=== PATIENT | female | born 1945 | race Caucasian/White ===

== ENCOUNTER 2018-11-05 21:22 | Inpatient (IN) | payer MEDICARE, OTHER ==
[~2018-11-05] VITALS: Ht 162.6 cm; Wt 85.9 kg
--- NOTE | 2018-11-05 21:37 | ED Respiratory ---
General Chief Complaint: Respiratory Problems Stated Complaint: SOB Source: patient, family (daughter) Exam Limitations: other (very hard of hearing) History of Present Illness Date Seen by Provider: Nov 05, 2018 Time Seen by Provider: 21:25 Initial Comments The patient is a pleasant 72-year-old female who presents for evaluation of s hortness of breath. She is a history of asthma and CAD status post CABG. She does not have a home nebulizer machine so wanted to sign members also use her machine. She is saturating 88% on room air upon arrival. She does wear oxygen at home at that night. She denies chest pain, nausea, diaphoresis, abdominal or back pain, palpitations, dizziness or syncope. She does feel warm arrival is temperature 100.4. She is anticoagulated with Xarelto. Timing/Duration: yesterday Modifying Factors: Improves With Albuterol Nebulizer (helped), Improves With Rest (helped) Allergies and Home Medications Allergies Coded Allergies: No Known Drug Allergies (Unverified , 11/05/18) Patient Home Medication List Home Medication List Reviewed: Yes Review of Systems Review of Systems Constitutional: fever EENTM: no symptoms reported Respiratory: cough, short of breath, wheezing Cardiovascular: no symptoms reported Gastrointestinal: no symptoms reported Genitourinary: no symptoms reported Musculoskeletal: no symptoms reported Skin: no symptoms reported Psychiatric/Neurological: No Symptoms Reported Hematologic/Lymphatic: No Symptoms Reported Immunological/Allergic: no symptoms reported All Other Systems Reviewed Negative Unless Noted: Yes Past Zryukvf-Hpbwwl-Wwcvps Hx Past Med/Social Hx: Reviewed Nursing Past Med/Soc Hx Patient Social History Recent Foreign Travel: No Contact w/Someone Who Travel: No Physical Exam Vital Signs - First Documented 11/05/18 11/05/18 21:25 21:37 Temp 100.4 Pulse 76 Resp 24 B/P (MAP) 170/83 (112) Pulse Ox 96 O2 Delivery Nasal Cannula O2 Flow Rate 3.00 Capillary Refill : Height: '" Weight: lbs. oz. 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, no motor/sensory deficits, alert, normal mood/affect, oriented x 3 Skin: normal color, warm/dry Lymphatic: no adenopathy Focused Exam Lactate Level 11/05/18 21:35: Lactic Acid Level 2.03*H Lactic Acid Level Laboratory Tests Test 11/05/18 21:35 Lactic Acid Level 2.03 MMOL/L (0.50-2.00) *H Progress/Results/Core Measures Suspected Sepsis SIRS Temperature: Pulse: Respiratory Rate: Laboratory Tests 11/05/18 21:29: White Blood Count 7.1 Blood Pressure / Mean: 11/05/18 21:35: Lactic Acid Level 2.03*H Laboratory Tests 11/05/18 21:29: Creatinine 0.93, Platelet Count 122L, Total Bilirubin 0.9 Results/Orders Lab Results Laboratory Tests Test 11/05/18 21:29 11/05/18 21:35 11/05/18 21:45 Range/Units White Blood Count 7.1 4.3-11.0 10^3/uL Red Blood Count 3.58 L 4.35-5.85 10^6/uL Hemoglobin 10.6 L 11.5-16.0 G/DL Hematocrit 34 L 35-52 % Mean Corpuscular Volume 94 80-99 FL Mean Corpuscular Hemoglobin 30 25-34 PG Mean Corpuscular Hemoglobin Concent 32 32-36 G/DL Red Cell Distribution Width 15.1 H 10.0-14.5 % Platelet Count 122 L 130-400 10^3/uL Mean Platelet Volume 11.9 H 7.4-10.4 FL Neutrophils (%) (Auto) 76 H 42-75 % Lymphocytes (%) (Auto) 16 12-44 % Monocytes (%) (Auto) 6 0-12 % Eosinophils (%) (Auto) 1 0-10 % Basophils (%) (Auto) 0 0-10 % Neutrophils # (Auto) 5.4 1.8-7.8 X 10^3 Lymphocytes # (Auto) 1.1 1.0-4.0 X 10^3 Monocytes # (Auto) 0.4 0.0-1.0 X 10^3 Eosinophils # (Auto) 0.1 0.0-0.3 10^3/uL Basophils # (Auto) 0.0 0.0-0.1 10^3/uL Sodium Level 139 135-145 MMOL/L Potassium Level 3.6 3.6-5.0 MMOL/L Chloride Level 96 L 98-107 MMOL/L Carbon Dioxide Level 27 21-32 MMOL/L Anion Gap 16 H 5-14 MMOL/L Blood Urea Nitrogen 14 7-18 MG/DL Creatinine 0.93 0.60-1.30 MG/DL Estimat Glomerular Filtration Rate 59 BUN/Creatinine Ratio 15 Glucose Level 268 H 70-105 MG/DL Calcium Level 9.5 8.5-10.1 MG/DL Corrected Calcium 9.4 8.5-10.1 MG/DL Total Bilirubin 0.9 0.1-1.0 MG/DL Aspartate Amino Transf (AST/SGOT) 44 H 5-34 U/L Alanine Aminotransferase (ALT/SGPT) 21 0-55 U/L Alkaline Phosphatase 141 H 40-136 U/L Total Protein 7.5 6.4-8.2 GM/DL Albumin 4.1 3.2-4.5 GM/DL Lactic Acid Level 2.03 *H 0.50-2.00 MMOL/L Troponin I < 0.30 <0.30 NG/ML Pro-B-Type Natriuretic Peptide 5256.0 H <75.0 PG/ML Urine Color YELLOW Urine Clarity CLEAR Urine pH 7.0 5-9 Urine Specific [place] 1.010 L 1.016-1.022 Urine Protein 1+ H NEGATIVE Urine Glucose (UA) 1+ H NEGATIVE Urine Ketones NEGATIVE NEGATIVE Urine Nitrite NEGATIVE NEGATIVE Urine Bilirubin NEGATIVE NEGATIVE Urine Urobilinogen 2.0 NORMAL MG/DL Urine Leukocyte Esterase NEGATIVE NEGATIVE Urine RBC (Auto) NEGATIVE NEGATIVE Urine RBC 0-2 /HPF Urine WBC 2-5 /HPF Urine Squamous Epithelial Cells 2-5 /HPF Urine Crystals NONE /LPF Urine Bacteria FEW H /HPF Urine Casts NONE /LPF Urine Mucus NONE /LPF Urine Culture Indicated NO My Orders Orders - DANY OLIVEIRA DO Cbc With Automated Diff (11/05/18 21:33) Comprehensive Metabolic Panel (11/05/18 21:33) Blood Culture (11/05/18 21:33) Urinalysis (11/05/18 21:33) Urine Culture (11/05/18 21:33) Chest 1 View Ap/Pa Only (11/05/18 21:33) Ed Iv/Invasive Line Start (11/05/18 21:33) Ekg Tracing (11/05/18 21:33) O2 (11/05/18 21:33) Remove Rings In Anticipation O (11/05/18 21:33) Lactic Acid Analyzer (11/05/18 21:33) Release Engineer (11/05/18 21:33) Continuous Pulse Ox (11/05/18 21:33) Albuterol/Ipra Inhalation Soln (Duoneb I (11/05/18 22:00) Svn Small Volume Nebulizer (11/05/18 21:49) Acetaminophen Tablet (Tylenol Tablet) (11/05/18 22:00) Methylprednisolone Sod Succ (Solu-Medrol (11/05/18 22:00) Troponin I (11/05/18 22:21) Probnp Fs (11/05/18 22:21) Furosemide Injection (Lasix Injection) (11/05/18 22:30) Ceftriaxone For Iv Use (Rocephin For I (11/05/18 23:00) Azithromycin Injection (Zithromax Inject (11/05/18 23:00) Medications Given in ED Current Medications Medications Dose Ordered Sig/Lucretia Route Start Time Stop Time Status Last Admin Dose Admin Acetaminophen 1,000 mg ONCE ONCE PO 11/05/18 22:00 11/05/18 22:01 DC 11/05/18 22:05 1,000 MG Albuterol/ Ipratropium 3 ml ONCE ONCE INH 11/05/18 22:00 11/05/18 22:01 DC 11/05/18 22:05 3 ML Furosemide 40 mg ONCE ONCE IVP 11/05/18 22:30 11/05/18 22:31 DC 11/05/18 22:48 40 MG Methylprednisolone Sodium Succinate 125 mg ONCE ONCE IVP 11/05/18 22:00 11/05/18 22:01 DC 11/05/18 22:05 125 MG Vital Signs/I&O 11/05/18 11/05/18 21:25 21:37 Temp 100.4 Pulse 76 Resp 24 B/P (MAP) 170/83 (112) Pulse Ox 96 96 O2 Delivery Nasal Cannula Nasal Cannula O2 Flow Rate 3.00 Capillary Refill : Progress Note : Progress Note @2300 - Patient and family updated on lab and imaging results. They agree with the plan to be admitted. Hospitalist jose and Dr. Ocampo accepts the admission and [facility]. ECG Comment EKG@2130 - normal sinus rhythm, rate of 63, normal axis, no acute ischemic findings noted, no STEMI, reviewed and interpreted by myself Diagnostic Imaging Diagonstic Imaging: Xray Comments CXR (prelim): Pulmonary edema is present, questionable left lower lobe infiltrate present, enlarged heart, pacemaker present, sternotomy wires noted Departure Communication (Admissions) Time/Spoke to Admitting Phy: 23:00 @0 - Dr. Ocampo excepts the telemetry admission and requests a pulmonary cons ult Dr. Sawyer and a cardiology consult with Dr. Layne. Impression Primary Impression: Acute exacerbation of congestive heart failure Additional Impression: Community acquired pneumonia Disposition: ADMITTED INPATIENT Condition: Stable Admissions Decision to Admit Reason: Admit from ER (General) Decision to Admit/Date: Nov 05, 2018 Time/Decision to Admit Time: 23:00 Departure-Patient Inst. Referrals: SEBASTIEN BROWN MD (PCP) Primary Care Physician DANY OLIVEIRA DO Nov 05, 2018 21:37
[2018-11-05 21:44] LABS: BASOPHILS % (AUTO) 0 % (0-10); EOSINOPHILS % (AUTO) 1 % (0-10); HEMATOCRIT 34 % (35-52); HEMOGLOBIN 10.6 G/DL (11.5-16.0); LYMPHOCYTES # (AUTO) 1.1 X 10^3 (1.0-4.0); LYMPHOCYTES % (AUTO) 16 % (12-44); MEAN CORPUSCULAR HEMOGLOBIN 30 PG (25-34); MEAN CORPUSCULAR HGB CONC 32 G/DL (32-36); MEAN CORPUSCULAR VOLUME 94 FL (80-99); MEAN PLATELET VOLUME 11.9 FL (7.4-10.4); MONOCYTES % (AUTO) 6 % (0-12); NEUTROPHILS # (AUTO) 5.4 X 10^3 (1.8-7.8); NEUTROPHILS % (AUTO) 76 % (42-75); PLATELET COUNT 122 10^3/uL (130-400); RED CELL DISTRIBUTION WIDTH 15.1 % (10.0-14.5); WHITE BLOOD COUNT 7.1 10^3/uL (4.3-11.0)
[2018-11-05 21:45] LABS: EOSINOPHILS # (AUTO) 0.1 10^3/uL (0.0-0.3); MONOCYTES # (AUTO) 0.4 X 10^3 (0.0-1.0)
[2018-11-05 21:59] LABS: BILIRUBIN,URINE NEGATIVE (NEGATIVE); CLARITY,URINE CLEAR; COLOR,URINE YELLOW; GLUCOSE, URINE (UA) 1+ (NEGATIVE); KETONES,URINE NEGATIVE (NEGATIVE); LEUKOCYTE ESTERASE ,URINE NEGATIVE (NEGATIVE); NITRITE,URINE NEGATIVE (NEGATIVE); PROTEIN,URINE 1+ (NEGATIVE); RBC,URINE 0-2 /HPF
[2018-11-05 22:00] LABS: BACTERIA,URINE FEW /HPF
[2018-11-05] MEDS ORDERED: methylPREDNISolone 125 MG (Solu-MEDROL) VIAL IVP ONE (22:00)
[2018-11-05] MEDS ORDERED: RT-ALBUTEROL/IPRATROPIUM 3 ML (DUONEB) VIAL INH ONE (22:00)
[2018-11-05] MEDS ORDERED: ACETAMINOPHEN 500 MG TAB (TYLENOL) PO ONE (22:00)
[2018-11-05 22:19] LABS: BILIRUBIN,TOTAL 0.9 MG/DL (0.1-1.0); CALCIUM 9.5 MG/DL (8.5-10.1); CREATININE SERUM 0.93 MG/DL (0.60-1.30); POTASSIUM 3.6 MMOL/L (3.6-5.0)
[2018-11-05 22:20] LABS: ALBUMIN 4.1 GM/DL (3.2-4.5); TOTAL PROTEIN 7.5 GM/DL (6.4-8.2)
[2018-11-05] MEDS ORDERED: FUROSEMIDE 40 MG/4 ML INJ (LASIX) IVP ONE (22:30)
--- NOTE | 2018-11-05 22:43 | Diagnostic Imaging Report ---
Examination: Single frontal view of the chest Indication: Shortness of breath. Comparison: None available. Findings: Left transvenous pacemaker is in place, with leads overlying the right atrium and right ventricle. There is moderate cardiomegaly. There is marked central vascular congestion, with diffuse mild interstitial prominence. There is no pneumothorax or large pleural effusion. No acute osseous abnormalities identified. There is decreased acromiohumeral distance involving both shoulders, likely reflecting chronic rotator cuff pathology. The spinal stimulator is demonstrated in the region of the lower lumbar spine. Median sternotomy wires appear intact. Impression: Interstitial pulmonary edema. There is moderate cardiomegaly. No large pleural effusion is demonstrated. Dictated by: Dictated on workstation # [id number]
[2018-11-05] MEDS ORDERED: cefTRIAXone 1,000 MG IV (ROCEPHIN) VIAL ONE (22:53)
[2018-11-05] MEDS ORDERED: AZITHROMYCIN 500 MG (ZITHROMAX) VIAL ONE (22:54)
--- NOTE | 2018-11-05 22:54 | NUR ---
PT. STATED SHE IS BREATHING EASIER.
[2018-11-05] MEDS ORDERED: NS (IVPB) 250 ML ONE (22:55)
[2018-11-05] MEDS ORDERED: WATER (STERILE) FOR INJECTION 10 ML ONE (22:56)
[2018-11-05] MEDS ORDERED: AZITHROMYCIN INJECTION 500 MG in NS (IVPB) 250 ML IV ONE (23:00)
[2018-11-05] MEDS ORDERED: cefTRIAXone FOR IV USE 1,000 MG in WATER (STERILE) FOR INJECTION 10 ML IV ONE (23:00)
[2018-11-06] VITALS (14 sets, daily range): BP systolic 108–187; BP diastolic 60–88
[2018-11-06] MEDS ORDERED: ACETAMINOPHEN 500 MG TAB (TYLENOL) PO PRN (02:00)
[2018-11-06] MEDS ORDERED: RT-ALBUTEROL/IPRATROPIUM 3 ML (DUONEB) VIAL IH PRN (02:00)
[2018-11-06] MEDS ORDERED: ONDANSETRON 4 MG/2 ML (SDV) Z0FRAN IV PRN (02:00)
[2018-11-06 03:48] LABS: BASOPHILS % (AUTO) 0 % (0-10); EOSINOPHILS % (AUTO) 0 % (0-10); HEMATOCRIT 33 % (35-52); HEMOGLOBIN 10.6 G/DL (11.5-16.0); LYMPHOCYTES # (AUTO) 0.8 X 10^3 (1.0-4.0); LYMPHOCYTES % (AUTO) 12 % (12-44); MEAN CORPUSCULAR HEMOGLOBIN 30 PG (25-34); MEAN CORPUSCULAR HGB CONC 32 G/DL (32-36); MEAN CORPUSCULAR VOLUME 93 FL (80-99); MEAN PLATELET VOLUME 11.7 FL (7.4-10.4); MONOCYTES # (AUTO) 0.1 X 10^3 (0.0-1.0); MONOCYTES % (AUTO) 2 % (0-12); NEUTROPHILS # (AUTO) 5.6 X 10^3 (1.8-7.8); NEUTROPHILS % (AUTO) 87 % (42-75); PLATELET COUNT 120 10^3/uL (130-400); RED CELL DISTRIBUTION WIDTH 15.3 % (10.0-14.5); WHITE BLOOD COUNT 6.4 10^3/uL (4.3-11.0)
[2018-11-06 04:14] LABS: CALCIUM 9.6 MG/DL (8.5-10.1); CREATININE SERUM 1.06 MG/DL (0.60-1.30); POTASSIUM 3.3 MMOL/L (3.6-5.0); TOTAL PROTEIN 7.6 GM/DL (6.4-8.2)
[2018-11-06] MEDS ORDERED: methylPREDNISolone 125 MG (Solu-MEDROL) VIAL IVP SCH ×2 (06:00→12:00)
--- NOTE | 2018-11-06 07:05 | Pulmonary Consultation ---
History of Present Illness History of Present Illness Date of Consultation 11/06/18 07:02 Time Seen by Provider: 07:52 Date of Admission History of Present Illness 72yo with hx of asthma, CAD presented to ED secondary to worsening SOB. Pt was found to have Sp02 of 88% on RA in the ED. SHe has home nocturnal oxygen however does not have portable oxygen at home. denies chest pain, nausea, diaphoresis, abdominal or back pain, palpitations, dizziness or syncope. Temp was 100.4 in the ED. I am consulted for pulmonary/ICU management. Allergies and Home Medications Allergies Coded Allergies: No Known Drug Allergies (Unverified , 11/05/18) Past Hwfvbgk-Hclxks-Lxzcxz Hx Past Med/Social Hx: Reviewed Nursing Past Med/Soc Hx Patient Social History Recent Foreign Travel: No Contact w/Someone Who Travel: No Recent Infectious Disease Expo: No Physical Abuse: No Sexual Abuse: No Mistreated: No Fear: No Immunizations Up To Date Date of Pneumonia Vaccine: Apr 14, 2014 Review of Systems Time Seen by Provider: 08:10 Constitutional: Weakness, Malaise; No: Fever, Chills, Sweats, Other Eyes: No: Pain, Vision change, Conjunctivae inflammation, Eyelid inflammation, Other, Redness ENT: Nose congestion; No: Ear pain, Ear discharge, Nose pain, Nose discharge, Mouth pain, Mouth swelling, Throat pain, Throat swelling, Other Respiratory: Cough, Shortness of breath, SOB with excertion, Wheezing; No: Hemoptysis, Pleuritic Pain Cardiovascular: Palpitations, Paroxysmal Noc. Dyspnea, Edema; No: Chest Pain Gastrointestinal: No: Nausea, Vomiting, Abdominal Pain, Diarrhea, Constipation, Melena, Hematochezia, Other Sepsis Event Evaluation Height, Weight, BMI Height: 5'4.00" Weight: 199lbs. 0.0oz. 90.146043rk; 34.2 BMI Method:Stated Exam Exam Vital Signs Date Time Temp Pulse Resp B/P (MAP) Pulse Ox O2 Delivery O2 Flow Rate FiO2 11/06/18 04:00 64 177/84 (115) 98 Nasal Cannula 2.00 11/06/18 04:00 Nasal Cannula 2.00 11/06/18 03:45 60 145/60 (88) 98 Nasal Cannula 2.00 11/06/18 03:30 60 18 167/75 (105) 97 Nasal Cannula 2.00 11/06/18 03:15 59 13 170/72 (104) 98 Nasal Cannula 2.00 11/06/18 03:00 63 25 108/74 (85) 98 Nasal Cannula 2.00 11/06/18 02:45 65 19 175/88 (117) 98 Nasal Cannula 2.00 11/06/18 02:30 64 21 171/84 (113) 98 Nasal Cannula 2.00 11/06/18 02:28 98 Nasal Cannula 11/06/18 02:15 63 23 159/70 (99) 99 Nasal Cannula 2.00 11/06/18 02:00 97 Nasal Cannula 2.00 11/06/18 02:00 64 13 166/74 (104) 99 Nasal Cannula 2.00 11/06/18 01:53 97.6 60 16 187/86 100 Nasal Cannula 2.00 2.00 11/06/18 01:51 60 12 180/82 (114) 99 Nasal Cannula 2.00 11/06/18 01:44 97.6 60 16 187/86 (119) 100 Nasal Cannula 2.00 11/06/18 01:42 60 11/05/18 23:55 97.6 59 16 86/53 (64) 97 Nasal Cannula 3.00 11/05/18 21:37 96 Nasal Cannula 3.00 11/05/18 21:25 100.4 76 24 170/83 (112) 96 Nasal Cannula I & O 11/06/18 07:00 Intake Total 360 ml Output Total 1400 ml Balance -1040 ml Height & Weight Height: 5'4.00" Weight: 199lbs. 0.0oz. 90.848002ws; 34.2 BMI Method:Stated General Appearance: Anxious, Chronically ill, Mild Distress HEENT: PERRL/EOMI, Pharynx Normal Neck: Full Range of Motion, Non Tender, Supple Respiratory: Chest Non Tender, No Accessory Muscle Use, No Respiratory Distress, Decreased Breath Sounds Cardiovascular: Regular Rate, Rhythm, No Edema Capillary Refill: Less Than 3 Seconds Gastrointestinal: normal bowel sounds, non tender, soft, no organomegaly Extremity: Normal Capillary Refill, Normal Inspection, No Pedal Edema Neurologic/Psychiatric: Alert, Oriented x3 Skin: Normal Color, Warm/Dry Lymphatic: No Adenopathy Results Lab Laboratory Tests 11/05/18 21:29 11/06/18 03:05 Assessment/Plan Assessment/Plan Acute respiratory distress secondary to acute Pulmonary edema -Check echocardiogram -Oxygen -troponin is negative -Cardiology is consulted -Continue Lasix -BNP 5256 AsthmaAE -Continue Solumedrol -Duonebs Thrombocytopenia -Monitor Hypokalemia -Replace Anemia -Monitor -Check occult stool JUAN FRANCISCO BERGMAN DO Nov 06, 2018 07:05
--- NOTE | 2018-11-06 07:35 | NUR ---
NOTIFIED DR BERGMAN AND DR VARGAS OF CONSULT
[2018-11-06] MEDS ORDERED: KCL 20 MEQ TAB (K-DUR) PO NR (08:00)
[2018-11-06 08:22] LABS: MAGNESIUM 1.9 MG/DL (1.8-2.4); PHOSPHORUS 2.6 MG/DL (2.3-4.7)
[2018-11-06] MEDS: RT-ADVAIR HFA 115/21 MCG PER PUFF IH SCH ×2 (08:52→20:06)
[2018-11-06] MEDS: RT-ALBUTEROL/IPRATROPIUM 3 ML (DUONEB) VIAL INH SCH ×3 (08:52→20:06)
[2018-11-06] MEDS ORDERED: FURO40TA4 PO (10:15)
[2018-11-06] MEDS ORDERED: ALLO100T PO (10:15)
[2018-11-06] MEDS ORDERED: ISOS30TA3 PO (10:15)
[2018-11-06] MEDS ORDERED: ASPI-983 PO (10:15)
[2018-11-06] MEDS ORDERED: SERT100T8 PO (10:15)
[2018-11-06] MEDS ORDERED: PANT40TA3 PO (10:15)
[2018-11-06] MEDS ORDERED: CLOP75TA28 PO (10:15)
--- NOTE | 2018-11-06 10:17 | NUR ---
WENT OVER THE EXT MED HX WITH FAMILY IN THE ROOM SINCE PATIENT IS HARD OF HEARING. SHE VERIFIED HOW THE PATIENT TAKES EACH MEDICATION. SHE STATES THE PATIENT DOES NOT TAKE ANYTHING OTC.
--- NOTE | 2018-11-06 10:33 | History & Physical-Hospitalist ---
History of Present Illness HPI/Chief Complaint Chief complaint: Pulmonary edema History of present illness: This is a 72-year-old white female patient of Dr. Mckeon and cardiology at [facility] who presented to the [facility] ER with shortness of breath found to have volume overload with elevated BNP consistent with pulmonary edema on chest x-ray. She does use nighttime oxygen at 2 L. At this current time it is difficult to communicate with her since she is so hard of hearing and her daughters at the bedside who lives with her and takes care of her who provides most of the information. We will be transferring to fourth floor since shortness of breath is much improved and she has responded to diuresis and will be closely monitored down in fourth floor will initiate physical therapy Dr. Rios therapy and maintain oxygen and nebulizer treatments and IV steroids and IV diuresis. Source: patient, family, RN/MD Exam Limitations: no limitations Date Seen 11/06/18 Time Seen by a Provider: 09:30 Attending Physician Roseanne Ocampo DO PCP Yo Mckeon MD Referring Physician Date of Admission Nov 05, 2018 at 23:10 Home Medications & Allergies Home Medications Reviewed patient Home Medication Reconciliation performed by pharmacy medication reconciliations records management technician and/or nursing. Patients Allergies have been reviewed. Allergies Allergies Coded Allergies No Known Drug Allergies (Unverified11/05/18) Past Dagmmyi-Ivepca-Hykypt Hx Past Med/Social Hx: Reviewed Nursing Past Med/Soc Hx, Reviewed and Corrections made Patient Social History Marrital Status: single Employed/Student: retired Smoking Status: Never a Smoker Recent Foreign Travel: No Contact w/other who traveled: No Recent Infectious Disease Expo: No Immunizations Up To Date Date of Pneumonia Vaccine: Apr 14, 2014 Past Medical History Surgeries: Coronary Stent Respiratory: Asthma Cardiac: Coronary Artery Disease, High Cholesterol, Hypertension, Valvular Heart Disease Musculoskeletal: Gout Hearing Impairment: Hard of Hearing Review of Systems Constitutional: see HPI EENTM: no symptoms reported Respiratory: dyspnea on exertion, short of breath Cardiovascular: no symptoms reported Gastrointestinal: no symptoms reported Genitourinary: no symptoms reported Musculoskeletal: no symptoms reported Skin: no symptoms reported Psychiatric/Neurological: No Symptoms Reported All Other Systems Reviewed Negative Unless Noted: Yes Physical Exam Physical Exam Vital Signs Vital Signs - First Documented 11/05/18 11/05/18 21:25 21:37 Temp 100.4 Pulse 76 Resp 24 B/P (MAP) 170/83 (112) Pulse Ox 96 O2 Delivery Nasal Cannula O2 Flow Rate 3.00 Capillary Refill : Less Than 3 Seconds Height, Weight, BMI Height: 5'4.00" Weight: 199lbs. 0.0oz. 90.636769xh; 34.2 BMI Method:Stated General Appearance: No Apparent Distress, WD/WN, Chronically ill Eyes: Right Eye Normal Inspection, Right Eye PERRL HEENT: PERRL/EOMI, Normal ENT Inspection, Pharynx Normal, Moist Mucous Membranes Neck: Full Range of Motion, Normal Inspection, Non Tender Respiratory: Chest Non Tender, No Accessory Muscle Use, No Respiratory Distress, Crackles, Decreased Breath Sounds Cardiovascular: Regular Rate, Rhythm, No Edema, No Gallop, No JVD, Normal Peripheral Pulses, Systolic Murmur Gastrointestinal: Normal Bowel Sounds, No Organomegaly, No Pulsatile Mass, Non Tender, Soft Back: Normal Inspection, No CVA Tenderness, No Vertebral Tenderness Extremity: Normal Capillary Refill, Normal Inspection, Normal Range of Motion, Non Tender, No Calf Tenderness, No Pedal Edema Neurologic/Psychiatric: Alert, Oriented x3, No Motor/Sensory Deficits, Normal Mood/Affect Skin: Normal Color, Warm/Dry Lymphatic: No Adenopathy Results Results/Procedures Labs Laboratory Tests 11/05/18 21:29 11/06/18 03:05 Patient resulted labs reviewed. Assessment/Plan Admission Diagnosis Assessment: Acute respiratory distress Pulmonary edema AE Asthma Thrombocytopenia Hypokalemia Anemia Night time hypoxia Plan: Appreciate cardiology and pulmonology consultations Transfer to fourth floor PT/OT O2 to maintain at 2 L Admission Status: Inpatient Order (span 2 midnights) Reason for Inpatient Admission: CHF with hypoxia will require 3 days Diagnosis/Problems Diagnosis/Problems (1) Acute exacerbation of congestive heart failure Status: Acute Qualifiers: Heart failure type: unspecified Qualified Codes: I50.9 - Heart failure, unspecified (2) CAD (coronary artery disease) Status: Chronic Qualifiers: Coronary Disease-Associated Artery/Lesion type: [place] artery [place] vs. transplanted heart: [place] heart Associated angina: with stable angina Qualified Codes: I25.118 - Atherosclerotic heart disease of [place] coronary artery with other forms of angina pectoris (3) Stenosis of coronary stent Status: Chronic Qualifiers: Encounter type: sequela Qualified Codes: T82.855S - Stenosis of coronary artery stent, sequela (4) Presbycusis of both ears Status: Chronic (5) Gout Status: Chronic Qualifiers: Gout site: unspecified site Gout etiology: unspecified cause Chronicity: unspecified Qualified Codes: M10.9 - Gout, unspecified Clinical Quality Measures DVT/VTE Risk/Contraindication: Risk Factor Score Per Nursin RFS Level Per Nursing on Admit: 3=High ROSEANNE OCAMPO DO Nov 06, 2018 10:33
--- NOTE | 2018-11-06 10:49 | Consultation-Cardiology ---
HPI-Cardiology Cardiology Consultation: Date of Consultation 11/06/18 Date of Admission Attending Physician Roseanne Ocampo DO Admitting Physician Yo Mckeon MD Consulting Physician Olivia LAYNE MD HPI: Time Seen by a Provider: 09:00 Chief Complaint: Shortness of breath 72-year-old lady who has history of permanent pacemaker, CAD, CABG. She presents with worsening shortness of breath. She has history of asthma. She denies active smoking. In the ER she was saturating at 88 percent on room air. She uses oxygen at night. She denies chest pain, diaphoresis, palpitations, syncope, near-syncope. She had mild fever on arrival. She is on oral anticoagulation. Review of Systems-Cardiology Review of Systems Constitutional: As described under HPI; No As described under HPI, No no symptoms reported, No chills, No fever, No lightheadedness Eyes: No As described under HPI, No no symptoms reported, No blindness, No blurred vision, No contact lenses, No drainage, No decreased acuity, No foreign body sensation, No pain, No vision change Ears/Nose/Throat: No As described under HPI, No no symptoms reported, No chronic hearing loss, No ear discharge, No ear pain, No nasal drainage, No ulcerations Respiratory: No no symptoms reported; As described under HPI; No As described under HPI, No cough, No orthopnea; shortness of breath; No SOB with excertion Cardiovascular: No no symptoms reported; As described under HPI; No As described under HPI, No chest pain, No edema, No irregular heart rate, No lightheadedness, No palpitations Gastrointestinal: No no symptoms reported, No As described under HPI, No abdomen distended, No abdominal pain, No blood streaked bowels, No constipation, No diarrhea, No nausea, No vomiting, No stool coloration changes Genitourinary: No As described under HPI, No burning, No dysuria, No discharge, No frequency, No flank pain, No hematuria, No urgency : Yes : No Skin: No rash, No skin related problems, No ulcerations Psychiatric/Neurological: No anxiety, No depression, No seizure, No focal weakness, No syncope Hematologic: No bleeding abnormalities All Other Systems Reviewed Negative Unless Noted: Yes [id number] Hx Patient Social History Recent Foreign Travel: No Recent Infectious Disease Expo: No Hospitalization with Isolation: Denies Immunizations Up To Date Date of Pneumonia Vaccine: Apr 14, 2014 Past Medical History PMH As described under Assessment. Allergies and Home Medications Allergies Coded Allergies: No Known Drug Allergies (Unverified , 11/05/18) Home Medications Allopurinol 100 Mg Tablet, 100 MG PO DAILY, (Reported) Aspirin 81 Mg Tablet.dr, 81 MG PO DAILY, (Reported) Clopidogrel Bisulfate 75 Mg Tablet, 75 MG PO DAILY, (Reported) Furosemide 40 Mg Tablet, 40 MG PO DAILY, (Reported) Isosorbide Mononitrate 30 Mg Tab.er.24h, 30 MG PO DAILY, (Reported) Pantoprazole Sodium 40 Mg Tablet.dr, 40 MG PO DAILY, (Reported) Sertraline HCl 100 Mg Tablet, 100 MG PO DAILY, (Reported) Patient Home Medication List Home Medication List Reviewed: Yes Physical Exam-Cardiology Physical Exam Vital Signs/I&O 11/06/18 11/06/18 11/06/18 11/06/18 12:00 12:00 13:00 15:25 Temp 97.0 98.2 Pulse 60 58 Resp 20 B/P (MAP) 132/63 (86) Pulse Ox 95 O2 Delivery Nasal Cannula Room Air O2 Flow Rate 2.00 11/06/18 11/06/18 11/06/18 11/06/18 15:30 15:45 19:00 20:07 Pulse 63 Pulse Ox 95 93 O2 Delivery Nasal Cannula Room Air Room Air O2 Flow Rate 2.00 11/06/18 11/06/18 20:12 20:45 Temp 98.6 Pulse 65 Resp 18 B/P (MAP) 150/67 (94) Pulse Ox 95 94 O2 Delivery Room Air Room Air 11/06/18 00:00 Intake Total 260 ml Balance 260 ml Capillary Refill : Less Than 3 Seconds Constitutional: appears stated age, AAO x 3; No apparent distress; well- developed, well-nourished HEENT: PERRL; No normal ENT inspection, No TMs normal, No pharynx normal, No scleral icterus (R), No scleral icterus (L), No pale conjunctivae (R), No pale conjunctivae (L), No photophobia, No TM abnormal (R), No TM abnormal (L), No pharyngeal erythema, No tonsillar exudate, No other, No discharge, No EOMI; hearing is well preserved; No hard of hearing; oral hygience is good; No ulceration, No xanthelasmas are seen Neck: No non-tender, No full range of motion, No supple, No normal inspection, No carotid bruit, No limited range of motion, No lymphadenopathy (R), No lymphadenopathy (L), No tender lateral, No tender midline, No thyromegaly, No other; carotid pulses are 2 + bilaterally; No with good upstrokes Respiratory: No accessory muscle use, No respiratory distress, No chest tender, No chest expansion is symmetric; chest is bilaterally symmetric; No lungs clear to percussion; lungs clear to auscultation; No crackles, No rhonchi, No rales, No stridor, No wheezing, No pleural rub, No other Cardiovascular: regular rate-rhythm; No irregularly irregular, No extra beats, No parasternal heave is noted, No JVD, No edema, No bradycardia, No tachycardia, No point of maximal impulse, No cardiac thrills are palpable; S1 and S2; No gallop/S3, No gallop/S4, No diastolic murmur, No systolic murmur, No friction rub, No click, No other Gastrointestinal: No tender, No soft, No round, No distended, No pulsatile mass, No organomegaly, No guarding, No rebound, No tenderness, No hernia, No mass, No audible bowel sounds, No abnormal bowel sounds, No abdominal bruits, No spleenomegaly, No other Rectal: deferred Extremities: No normal range of motion, No non-tender, No normal inspection, No pedal edema, No calf tenderness, No normal capillary refill, No pelvis stable, No calf tenderness, No inflammation, No pedal edema, No slow capillary refill, No swelling, No other, No abrasion, No clubbing, No cyanosis, No ecchymosis, No laceration, No no lower extremity edema bilateral, No significant edema, No tenderness, No wound Neurologic/Psychiatric: no motor/sensory deficits, alert, normal mood/affect, oriented x 3, power is 5/5 both on sides Skin: No rash, No ulcerations Lymphatic: no adenopathy Data Review Labs Laboratory Tests 11/06/18 03:05: White Blood Count 6.4, Red Blood Count 3.59L, Hemoglobin 10.6L, Hematocrit 33L, Mean Corpuscular Volume 93, Mean Corpuscular Hemoglobin 30, Mean Corpuscular Hemoglobin Concent 32, Red Cell Distribution Width 15.3H, Platelet Count 120L, Mean Platelet Volume 11.7H, Neutrophils (%) (Auto) 87H, Lymphocytes (%) (Auto) 12, Monocytes (%) (Auto) 2, Eosinophils (%) (Auto) 0, Basophils (%) (Auto) 0, Neutrophils # (Auto) 5.6, Lymphocytes # (Auto) 0.8L, Monocytes # (Auto) 0.1, Eosinophils # (Auto) 0.0, Basophils # (Auto) 0.0, Sodium Level 141, Potassium Level 3.3L, Chloride Level 99, Carbon Dioxide Level 28, Anion Gap 14, Blood Urea Nitrogen 14, Creatinine 1.06, Estimat Glomerular Filtration Rate 51, BUN/Creatinine Ratio 13, Glucose Level 224H, Calcium Level 9.6, Corrected Calcium 9.6, Phosphorus Level 2.6, Magnesium Level 1.9, Total Bilirubin 1.0, Aspartate Amino Transf (AST/SGOT) 38H, Alanine Aminotransferase (ALT/SGPT) 18, Alkaline Phosphatase 136, Total Protein 7.6, Albumin 4.0 11/06/18 15:42: Blood Gas Puncture Site L RAD, Blood Gas Patient Temperature 98.2, Arterial Blood pH 7.47H, Arterial Blood Partial Pressure CO2 40, Arterial Blood Partial Pressure O2 71L, Arterial Blood HCO3 29H, Arterial Blood Total CO2 30.0, Arterial Blood Oxygen Saturation 96, Arterial Blood Base Excess 5.1H, Hany Test YES-POS, Blood Gas Ventilator Setting NO, Blood Gas Inspired Oxygen RA ECG Impression ECG Initial ECG Rhythm: Normal Sinus Initial ECG Impression: Nonspecific Changes A/P-Cardiology Assessment/Admission Diagnosis Shortness of breath, Acute diastolic congestive heart failure, CAD/CABG, Permanent pacemaker, Anemia, Hypokalemia, Chronic kidney disease stage III Plan Shortness of breath, multifactorial. Consider COPD and diastolic heart failure. Acute diastolic congestive heart failure, echocardiogram. Elevated BNP. Lasix. CAD/CABG, continue dual antiplatelet therapy. Permanent pacemaker, no acute issues. Anemia, unclear etiology. Hypokalemia, recommend repletion. Chronic kidney disease stage III Thank you for your consultation. Please call me if you have any questions. Unruly Layne MD, FACP, FACC, FSCAI, FHRS, CCDS Interventional Cardiology Cardiac Electrophysiology Vascular Medicine and Endovascular Interventions Clinical Quality Measures DVT/VTE Risk/Contraindication: Risk Factor Score Per Nursin RFS Level Per Nursing on Admit: 3=High Olivia LAYNE MD Nov 06, 2018 10:49
[2018-11-06] MEDS: PANTOPRAZOLE 40 MG (PROTONIX) TAB PO SCH (11:13)
[2018-11-06] MEDS: methylPREDNISolone 40 MG/ML (Solu-MEDROL) VIAL IV SCH ×2 (11:13→18:55)
[2018-11-06] MEDS: FUROSEMIDE 40 MG/4 ML INJ (LASIX) IVP SCH (11:13)
--- NOTE | 2018-11-06 15:02 | Physical Therapy Evaluation ---
PT Evaluation-General Medical Diagnosis Admission Date Nov 05, 2018 at 23:10 Medical Diagnosis: pulmonary edema Onset Date: Nov 05, 2018 Therapy Diagnosis Therapy Diagnosis: impaired mobility, balance, endurance Height/Weight Height (Feet): 5 Height (Inches): 4.00 Weight (Pounds): 199 Weight (Ounces): 0.0 Precautions Precautions/Isolations: Standard Precautions Referral Physician: Roseanne Ocampo DO Reason for Referral: Evaluation/Treatment Medical History Additional Medical History Past Medical History Surgeries: Coronary Stent Respiratory: Asthma Cardiac: Coronary Artery Disease, High Cholesterol, Hypertension, Valvular Heart Disease Musculoskeletal: Gout Hearing Impairment: Hard of Hearing Reviewed History: Yes Social History Home: Single Level Current Living Status: Children Entry Into Home: Stairs With Railing PT Steps Into Home: 3 Prior/Core FIM Prior Level of Function Therapy Code Descriptions/Definitions Functional [place] Measure: 0=Not Assessed/NA 4=Minimal Assistance 1=Total Assistance 5=Supervision or Setup 2=Maximal Assistance 6=Modified [place] 3=Moderate Assistance 7=Complete [place] Therapy Quality Codes: 6 Independent with activity with or without an assistive device 5 Patient requires set up or clean up by helper. Patient completes activity by themselves 4 Supervision or touching assist (CGA). [place] provide cues , steadying assist 3 The helper provides less than half the effort to complete the activity 2 The helper provides more than half the effort to complete the activity 1 Dependent. The helper does all the effort to complete an activity 7 Patient refused to complete or attempt activity 9 The patient did not perform the activity before the current illness or injury 88 Not attempted due to Medical conditions or safety concerns Functional Abilities and Goals: Independent: Patient completed the activities by him/herself, with or without an assistive device, with no assistance from a helper. Needed Some Help: Patient needed partial assistance from another person to complete activities. Dependent: A helper completed the activities for the patient. Unknown: Not Applicable: Bed Mobility: 7 Transfers (B,C,W/C) (FIM): 7 Gait: 7 Stairs: 7 Indoor Mobility (Ambulation): Independent Stairs: Independent PT Evaluation-Current Subjective Patient in bed pre tx, agrees to PT, has no complaints of pain. Patient is very hard of hearing. Pt/Family Goals to be independent at home Objective Patient Orientation: Person, Place, Situation ROM/Strength ROM Lower Extremities WNL Strength Lower Extremities 5/5 gross BLE Sensory Hearing: Impaired Sensation Right Lower Extremit: Intact Sensation Left Lower Extremity: Intact Transfers Therapy Code Descriptions/Definitions Functional [place] Measure: 0=Not Assessed/NA 4=Minimal Assistance 1=Total Assistance 5=Supervision or Setup 2=Maximal Assistance 6=Modified [place] 3=Moderate Assistance 7=Complete [place] Transfers (B, C, W/C) (FIM): 5 Scootin Rollin Supine to/from Sit: 6 Sit to/from Stand: 5 Gait Mode of Locomotion: Walk Anticipated Mode of Locomotion: Walk Gait (FIM): 4 Distance: 200' Gait Level of Assist: 4 Gait Persons Needed: 1 Gait Assistive Device: None Comments/Gait Description CGA, brisk ambulation but no LOB, some slight unsteadiness with turns Balance Sitting Static: Normal Sitting Dynamic: Normal Standing Static: Good Standing Dynamic: Fair Assessment/Needs Patient has impaired mobility, endurance, balance. She has some unsteadiness with turning during ambulation. Patient sitting EOB post tx with nurse call, phone, tray, all needs met. Rehab Potential: Fair PT Short Term Goals Short Term Goals Time Frame: Nov 13, 2018 Transfers (B,C,W/C) (FIM): 6 Gait (FIM): 6 Gait Distance Comment: 300' Gait Level of Assist: 6 Gait Assistive Device: Cane Single Point PT Plan Problem List Problem List: Activity Tolerance, Functional Strength, Safety, Balance, Gait, Transfer Treatment/Plan Treatment Plan: Continue Plan of Care Treatment Plan: Bed Mobility, Education, Functional Activity Sarah, Functional Strength, Gait, Safety, Therapeutic Exercise, Transfers Treatment Duration: Nov 13, 2018 Frequency: 6 times per week Estimated Hrs Per Day: .25 hour per day Patient and/or Family Agrees t: Yes Safety Risks/Education Patient Education: Gait Training, Transfer Techniques, Correct Positioning, Safety Issues Teaching Recipient: Patient Teaching Methods: Demonstration, Discussion Response to Teaching: Reinforcement Needed Discharge Recommendations Plan Patient will perform bed mobility and transfer training, balance and endurance training, functional strengthening, stair training, gait training, and education, to improve functional mobility and independence at home. Therapy D/C Recommendations: Home w/ Family Support Time/GCodes Time In: 1440 Time Out: 1450 Total Billed Treatment Time: 10 Total Billed Treatment 1 visit DAVY Crawford' YUE VERGARA PT Nov 06, 2018 15:02
--- NOTE | 2018-11-06 15:11 | Occupational Therapy Eval ---
OT Evaluation-General/PLF Medical Diagnosis Admission Date Nov 05, 2018 at 23:10 Medical Diagnosis: pulmonary edema Onset Date: Nov 05, 2018 Therapy Diagnosis Therapy Diagnosis: impaired ADLs and mobility Height/Weight Height (Feet): 5 Height (Inches): 4.00 Weight (Pounds): 199 Weight (Ounces): 0.0 Precautions Precautions/Isolations: Standard Precautions Safety Interventions: None Weight Bear Status Weight Bearing Restriction: Weight Bearing/Tolerated Referral Physician: Roseanne Ocampo DO Referral Reason: Activity Tolerance, Self Care, Evaluation/Treatment, Strengthening/ROM Medical History Additional Medical History Surgeries: Coronary Stent Respiratory: Asthma Cardiac: Coronary Artery Disease, High Cholesterol, Hypertension, Valvular Heart Disease Musculoskeletal: Gout Hearing Impairment: Hard of Hearing Current History per H&P: " This is a 72-year-old white female patient of Dr. Mckeon and cardiology at [facility] who presented to the [facility] with shortness of breath found to have volume overload with elevated BNP consistent with pulmonary edema on chest x-ray. She does use nighttime oxygen at 2 L. At this current time it is difficult to communicate with her since she is so hard of hearing and her daughters at the bedside who lives with her and takes care of her who provides most of the information. We will be transferring to fourth floor since shortness of breath is much improved and she has responded to diuresis and will be closely monitored down in fourth floor will initiate physical therapy Dr. Rios therapy and maintain oxygen and nebulizer treatments and IV steroids and IV diuresis." Reviewed History: Yes Social History Home: Single Level Current Living Status: Children Entry Into Home: Stairs With Railing Steps Into Home: 3 ADL-Prior Level of Function Therapy Code Descriptions/Definitions Functional [place] Measure: 0=Not Assessed/NA 4=Minimal Assistance 1=Total Assistance 5=Supervision or Setup 2=Maximal Assistance 6=Modified [place] 3=Moderate Assistance 7=Complete [place] Therapy Quality Codes: 6 Independent with activity with or without an assistive device 5 Patient requires set up or clean up by helper. Patient completes activity by themselves 4 Supervision or touching assist (CGA). [place] provide cues , steadying assist 3 The helper provides less than half the effort to complete the activity 2 The helper provides more than half the effort to complete the activity 1 Dependent. The helper does all the effort to complete an activity 7 Patient refused to complete or attempt activity 9 The patient did not perform the activity before the current illness or injury 88 Not attempted due to Medical conditions or safety concerns Functional Abilities and Goals: Independent: Patient completed the activities by him/herself, with or without an assistive device, with no assistance from a helper. Needed Some Help: Patient needed partial assistance from another person to complete activities. Dependent: A helper completed the activities for the patient. Unknown: Not Applicable: ADL PLOF Comments independent PLOF using no AD, Self Care: Independent Functional Cognition: Independent DME/Equipment: Bath Chair, Tub/Shower Drive Self: Yes OT Current Status Subjective pt standing at sink upon O Tarrival. pt agreed to OT evaluation session. pt reports no pain Mental Status/Objective Patient Orientation: Person, Place, Time, Situation Current Glasses/Contacts: Yes Hearing Aids: No (pt very [place]) Dentures/Partials: Yes Hand Dominance: Right Upper Extremity ROM limited shoulder flex to approx 100 degrees jesús UE. pt stated she has jesús rotator cuff tears and stated she needs jesús shoulder replacements. Upper Extremity Coordination WFL finger to nose and opposition. Upper Extremity Sensation WFL Upper Extremity Strength jesús shoulder flexion 2+/5 MMT ADL-Treatment Therapy Code Descriptions/Definitions Functional [place] Measure: 0=Not Assessed/NA 4=Minimal Assistance 1=Total Assistance 5=Supervision or Setup 2=Maximal Assistance 6=Modified [place] 3=Moderate Assistance 7=Complete [place] Therapy Quality Codes: 6 Independent with activity with or without an assistive device 5 Patient requires set up or clean up by helper. Patient completes activity by themselves 4 Supervision or touching assist (CGA). [place] provide cues , steadying assist 3 The helper provides less than half the effort to complete the activity 2 The helper provides more than half the effort to complete the activity 1 Dependent. The helper does all the effort to complete an activity 7 Patient refused to complete or attempt activity 9 The patient did not perform the activity before the current illness or injury 88 Not attempted due to Medical conditions or safety concerns EVAL ONLY: pt perform UB dressing, LB dressing, toietling, grooming, and functional mobility independently using no AD. Education OT Patient Education: Other (role of OT ) Teaching Methods: Discussion Response to Teaching: Verbalize Understanding OT Short Term Goals Short Term Goals Transfers (B,C,W/C) (FIM): 6 1=Demonstrate adherence to instructed precautions during ADL tasks. 2=Patient will verbalize/demonstrate understanding of assistive devices/modifications for ADL. 3=Patient will improve strength/tolerance for activity to enable patient to perform ADL's. OT Nursing Home Goals Nursing Home Goals 1=Demonstrate adherence to instructed precautions during ADL tasks. 2=Patient will verbalize/demonstrate understanding of assistive devices/modifications for ADL. 3=Patient will improve strength/tolerance for activity to enable patient to perform ADL's. OT Education/Plan Problem List/Assessment Assessment: No Skilled OT Needs ID'd pt demo ability to perform UB dressing (zip up robe), LB dressing(underpants, jesús socks), toietling (3/3 toileting tasks) , grooming (standing comb hair, b castañeda teeth, and wash face) , and functional mobility independently using no AD. pt stated she feels back to baseline. OT services no indicated secondary to pt being independent. pt agreed she does not need OT services. d/c OT at this time. Discharge Recommendations Plan/Recommendations: Continue POC Therapy D/C Recommendations: Home w/ Family Support Equpiment Recommendations-D/C: None Treatment Plan/Plan of Care Treatment,Training & Education: Yes Treatment Duration: Nov 06, 2018 Frequency: 1 time per week (eval only) Estimated Hrs Per Day: Other (eval only ) Rehab Potential: Fair Time/GCodes Start Time: 14:52 Stop Time: 14:10 Billed Treatment Time EVL 18 minutes RENNY SURESH OT Nov 06, 2018 15:11
--- NOTE | 2018-11-06 15:17 | NUR ---
Report called to ROLO Tierney on forth floor who will assume pt care at this time. Pt transported by this RN via wheelchair to room 431 post report. Personal belongings with pt at time of transfer. VSS. RT notified of pt's transfer at this time. Nothing further to note.
--- NOTE | 2018-11-06 15:25 | NUR ---
Patient transferred to 431 perW/C accompanied by ICUstaleda. Patient and family notified and understand transfer. Personal belongings with patient. Report given to THIS RN FROM GRIZZLYMAN .
[2018-11-06 15:50] LABS: ABG BASE EXCESS 5.1 MMOL/L (-2.5-2.5); ABG OXYGEN SATURATION 96 % (94-100); ABG PCO2 40 MMHG (35-45); ABG PH 7.47 (7.37-7.43); ABG PO2 71 MMHG (79-93)
[2018-11-06 15:51] LABS: ALLENS TEST YES-POS; INSPIRED O2 RA; PATIENT TEMP 98.2; VENTILATOR NO
[2018-11-07] VITALS: BP 162/70
[2018-11-07] MEDS ORDERED: cefTRIAXone 1,000 MG/SWFI 10 ML IV PUSH IV SCH ×2
[2018-11-07] MEDS ORDERED: AZITHROMYCIN 500 MG/NS 250 ML IVPB IV SCH ×2
[2018-11-07] MEDS ORDERED: WATER (STERILE) FOR INJECTION 10 ML ONE (00:01)
[2018-11-07] MEDS ORDERED: cefTRIAXone 1,000 MG IV (ROCEPHIN) VIAL ONE (00:01)
[2018-11-07] MEDS: methylPREDNISolone 40 MG/ML (Solu-MEDROL) VIAL IV SCH ×2 (00:22→06:12)
[2018-11-07] MEDS: RT-ALBUTEROL/IPRATROPIUM 3 ML (DUONEB) VIAL INH SCH ×2 (03:03→08:34)
[2018-11-07 04:00] VITALS: BP 147/67
[2018-11-07 05:07] LABS: BASOPHILS % (AUTO) 0 % (0-10); EOSINOPHILS % (AUTO) 0 % (0-10); HEMATOCRIT 32 % (35-52); HEMOGLOBIN 10.1 G/DL (11.5-16.0); LYMPHOCYTES # (AUTO) 0.5 X 10^3 (1.0-4.0); LYMPHOCYTES % (AUTO) 8 % (12-44); MEAN CORPUSCULAR HEMOGLOBIN 29 PG (25-34); MEAN CORPUSCULAR HGB CONC 32 G/DL (32-36); MEAN CORPUSCULAR VOLUME 92 FL (80-99); MEAN PLATELET VOLUME 12.1 FL (7.4-10.4); MONOCYTES # (AUTO) 0.2 X 10^3 (0.0-1.0); MONOCYTES % (AUTO) 3 % (0-12); NEUTROPHILS % (AUTO) 89 % (42-75); PLATELET COUNT 118 10^3/uL (130-400); RED CELL DISTRIBUTION WIDTH 15.5 % (10.0-14.5); WHITE BLOOD COUNT 6.7 10^3/uL (4.3-11.0)
[2018-11-07 05:25] LABS: CALCIUM 9.3 MG/DL (8.5-10.1); CREATININE SERUM 1.23 MG/DL (0.60-1.30); MAGNESIUM 1.9 MG/DL (1.8-2.4); PHOSPHORUS 3.2 MG/DL (2.3-4.7); POTASSIUM 3.9 MMOL/L (3.6-5.0)
[2018-11-07] MEDS: PANTOPRAZOLE 40 MG (PROTONIX) TAB PO SCH (06:12)
[2018-11-07] MEDS ORDERED: GABA-488 PO (06:14)
--- NOTE | 2018-11-07 06:30 | NUR ---
Dr. Layne notified of pt being in AFIB. New orders rec to stop scheduled Aspirin, start Eliquis 5mg BID, and to re-check troponin this am.
[2018-11-07] MEDS ORDERED: KCL 10 MEQ TAB (MICRO K) PO SCH (07:00)
--- NOTE | 2018-11-07 07:22 | Pulmonary Progress Note ---
Subjective Time Seen by a Provider: 07:22 Subjective/Events-last exam No complications noted. Sepsis Event Evaluation Height, Weight, BMI Height: 5'4.00" Weight: 189lbs. 6.4oz. 85.610236vk; 34.2 BMI Method:Stated Focused Exam Lactate Level 11/05/18 21:35: Lactic Acid Level 2.03*H 11/05/18 23:30: Lactic Acid Level 1.47 Exam Exam Vital Signs Date Time Temp Pulse Resp B/P (MAP) Pulse Ox O2 Delivery O2 Flow Rate FiO2 11/07/18 07:00 61 11/07/18 04:00 97.6 60 14 147/67 (93) 97 Room Air 11/07/18 03:03 93 Room Air 11/07/18 01:00 63 11/07/18 00:00 97.4 66 16 162/70 (100) 97 Room Air 11/06/18 20:45 98.6 65 18 150/67 (94) 94 Room Air 11/06/18 20:20 Nasal Cannula 2.00 11/06/18 20:12 95 Room Air 11/06/18 20:07 93 Room Air 11/06/18 19:00 63 11/06/18 15:45 95 Room Air 11/06/18 15:30 Nasal Cannula 2.00 11/06/18 15:25 98.2 58 20 132/63 (86) 95 Room Air 11/06/18 13:00 60 11/06/18 12:00 97.0 11/06/18 12:00 Nasal Cannula 2.00 11/06/18 09:00 Nasal Cannula 2.00 11/06/18 08:52 98 Nasal Cannula 2.00 11/06/18 08:00 97.5 11/06/18 08:00 Nasal Cannula 2.00 I & O 11/07/18 07:00 Intake Total 1150 ml Output Total 600 ml Balance 550 ml Height & Weight Height: 5'4.00" Weight: 189lbs. 6.4oz. 85.814172so; 34.2 BMI Method:Stated General Appearance: No Apparent Distress, WD/WN HEENT: Pharynx Normal Neck: Full Range of Motion, Non Tender, Supple Respiratory: Chest Non Tender, Lungs Clear, No Accessory Muscle Use, No Respiratory Distress Cardiovascular: No Edema, No Murmur, Irregularly Irregular Capillary Refill: Less Than 3 Seconds Gastrointestinal: normal bowel sounds, non tender, soft Extremity: Normal Capillary Refill, No Pedal Edema Neurologic/Psychiatric: Alert, Oriented x3 Skin: Normal Color, Warm/Dry Lymphatic: No Adenopathy Results Lab Laboratory Tests 11/05/18 21:29 11/06/18 03:05 11/07/18 04:44 Assessment/Plan Assessment/Plan Acute respiratory distress secondary to acute Pulmonary edema - echocardiogram pending -Oxygen -Cardiology is consulted Lasix -BNP 5256 AsthmaAE - Solumedrol -- change to prednisone taper -Duonebs Thrombocytopenia -Monitor Anemia -Monitor -Check occult stool JUAN FRANCISCO BERGMAN DO Nov 07, 2018 07:22
[2018-11-07 08:00] VITALS: BP 137/64
[2018-11-07] MEDS: RT-ADVAIR HFA 115/21 MCG PER PUFF IH SCH (08:34)
[2018-11-07] MEDS: FUROSEMIDE 40 MG/4 ML INJ (LASIX) IVP SCH (08:51)
[2018-11-07] MEDS ORDERED: APIXABAN 5 MG (ELIQUIS) TABLET PO SCH (09:00)
[2018-11-07] MEDS ORDERED: ASPIRIN E.C. 81 MG (ECOTRIN) TAB PO SCH (09:00)
[2018-11-07] MEDS ORDERED: NON-FORMULARY MEDICATION 1 EA EA (Allopurinol 100 MG) PO SCH (09:00)
[2018-11-07] MEDS ORDERED: CLOPIDOGREL 75 MG (PLAVIX) TABLET PO SCH (09:00)
[2018-11-07] MEDS ORDERED: ALLOPURINOL 100 MG (ZYLOPRIM) TAB PO SCH (09:00)
[2018-11-07] MEDS ORDERED: SERTRALINE 100 MG (ZOLOFT) TAB PO SCH (09:00)
[2018-11-07] MEDS ORDERED: predniSONE 10 MG TAB PO SCH (09:00)
[2018-11-07] MEDS ORDERED: ISOSORBIDE MONONITRATE 30 MG (IMDUR) TAB PO SCH (09:00)
[2018-11-07] MEDS ORDERED: PANTOPRAZOLE 40 MG (PROTONIX) TAB PO SCH (09:00)
[2018-11-07 12:00] VITALS: BP 140/63
--- NOTE | 2018-11-07 12:44 | Physical Therapy Daily Note ---
PT Daily Note-Current Subjective Pt up ad-yanci in the room. Mental Status Patient Orientation: Person, Place, Time, Situation Transfers Therapy Code Descriptions/Definitions Functional [place] Measure: 0=Not Assessed/NA 4=Minimal Assistance 1=Total Assistance 5=Supervision or Setup 2=Maximal Assistance 6=Modified [place] 3=Moderate Assistance 7=Complete [place] Therapy Quality Codes: 6 Independent with activity with or without an assistive device 5 Patient requires set up or clean up by helper. Patient completes activity by themselves 4 Supervision or touching assist (CGA). [place] provide cues , steadying assist 3 The helper provides less than half the effort to complete the activity 2 The helper provides more than half the effort to complete the activity 1 Dependent. The helper does all the effort to complete an activity 7 Patient refused to complete or attempt activity 9 The patient did not perform the activity before the current illness or injury 88 Not attempted due to Medical conditions or safety concerns Gait Training Gait (FIM): 7 Distance (FIM): 3=150 ft Distance: 400ft Gait Level of Assist: 7 Gait Persons Needed: 0 Gait Assistive Device: None Exercises Seated Therapy Exercises: LE Protocol Seated Reps: 15 Assessment Pt is ambulating safely with good stability. No issues with transfers. PT Short Term Goals Short Term Goals Time Frame: Nov 13, 2018 Transfers (B,C,W/C) (FIM): 6 Gait (FIM): 6 Gait Distance Comment: 300' Gait Level of Assist: 6 Gait Assistive Device: Cane Single Point PT Plan Treatment/Plan Treatment Plan: Continue Plan of Care Treatment Plan: Bed Mobility, Education, Functional Activity Sarah, Functional Strength, Gait, Safety, Therapeutic Exercise, Transfers Treatment Duration: Nov 13, 2018 Frequency: 6 times per week Estimated Hrs Per Day: .25 hour per day Patient and/or Family Agrees t: Yes Time/GCodes Time In: 944 Time Out: 954 Total Billed Treatment Time: 10 Total Billed Treatment 1, gt 10 BALDO GARRIDO PT Nov 07, 2018 12:44
[2018-11-07] MEDS ORDERED: FLUT12AE4 IH (13:01)
[2018-11-07] MEDS ORDERED: POTA10TA6 PO (13:01)
[2018-11-07] MEDS ORDERED: PRED10TA22 PO (13:01)
[2018-11-07] MEDS ORDERED: APIX5TAB PO (13:01)
[2018-11-07] MEDS ORDERED: CEFD300C3 PO (13:01)
--- NOTE | 2018-11-07 13:03 | Discharge Summary ---
Diagnosis/Chief Complaint Date of Admission Nov 05, 2018 at 23:10 Date of Discharge Discharge Date: Nov 07, 2018 Admission Diagnosis Assessment: Acute respiratory distress Pulmonary edema AE Asthma Thrombocytopenia Hypokalemia Anemia Night time hypoxia Plan: Appreciate cardiology and pulmonology consultations Transfer to fourth floor PT/OT O2 to maintain at 2 L Discharge Diagnosis (1) Acute exacerbation of congestive heart failure Status: Acute (2) CAD (coronary artery disease) Status: Chronic (3) Stenosis of coronary stent Status: Chronic (4) Presbycusis of both ears Status: Chronic (5) Gout Status: Chronic (6) Bronchitis Status: Acute (7) Acute exacerbation of COPD with asthma Status: Acute Discharge Summary Discharge Physical Exam Allergies: Coded Allergies: No Known Drug Allergies (Unverified , 11/05/18) Vitals & I&Os Vital Signs Date Time Temp Pulse Resp B/P (MAP) Pulse Ox O2 Delivery O2 Flow Rate FiO2 11/07/18 12:38 66 11/07/18 12:00 97.4 20 140/63 (88) 94 Room Air 11/06/18 20:20 2.00 General Appearance: No Apparent Distress, WD/WN Respiratory: Chest Non Tender, Lungs Clear, Normal Breath Sounds, No Accessory Muscle Use, No Respiratory Distress Cardiovascular: Regular Rate, Rhythm, No Edema, No Gallop, No JVD, No Murmur, Normal Peripheral Pulses Neurologic/Psychiatric: Alert, Oriented x3, No Motor/Sensory Deficits, Normal Mood/Affect Hospital Course Was the Problem List Reviewed?: Yes Patient had a short hospital course she was admitted placed in cardiac stepdown unit given IV diuresis and cardiology and pulmonology consultation. Empiric antibiotic of Rocephin and Zithromax was maintained for presumed infiltrate superimposed with pulmonary edema and she was discharged on Ceftin near for letha t. Acute exacerbation of asthma responded to inhaled corticosteroids and oral steroids which will both be discharged on. Cardiology was okay with her discharging today and her daughter lives with her she did not require any oxygen she is eating well bowel function was normal and she was deemed stable for discharge. Labs (last 24 hrs) Laboratory Tests 11/06/18 15:42: Blood Gas Puncture Site L RAD, Blood Gas Patient Temperature 98.2, Arterial Blood pH 7.47H, Arterial Blood Partial Pressure CO2 40, Arterial Blood Partial Pressure O2 71L, Arterial Blood HCO3 29H, Arterial Blood Total CO2 30.0, Arterial Blood Oxygen Saturation 96, Arterial Blood Base Excess 5.1H, Hany Test YES-POS, Blood Gas Ventilator Setting NO, Blood Gas Inspired Oxygen RA 11/07/18 04:44: White Blood Count 6.7, Red Blood Count 3.44L, Hemoglobin 10.1L, Hematocrit 32L, Mean Corpuscular Volume 92, Mean Corpuscular Hemoglobin 29, Mean Corpuscular Hemoglobin Concent 32, Red Cell Distribution Width 15.5H, Platelet Count 118L, Mean Platelet Volume 12.1H, Neutrophils (%) (Auto) 89H, Lymphocytes (%) (Auto) 8L, Monocytes (%) (Auto) 3, Eosinophils (%) (Auto) 0, Basophils (%) (Auto) 0, Neutrophils # (Auto) 6.0, Lymphocytes # (Auto) 0.5L, Monocytes # (Auto) 0.2, Eosinophils # (Auto) 0.0, Basophils # (Auto) 0.0, Sodium Level 137, Potassium Level 3.9, Chloride Level 98, Carbon Dioxide Level 25, Anion Gap 14, Blood Urea Nitrogen 30H, Creatinine 1.23, Estimat Glomerular Filtration Rate 43, BUN/Creatinine Ratio 24, Glucose Level 301H, Calcium Level 9.3, Phosphorus Level 3.2, Magnesium Level 1.9, Troponin I < 0.028 11/07/18 11:45: Microbiology 11/06/18 Blood Culture - Preliminary, Resulted No growth 11/05/18 Urine Culture - Final, Complete NO GROWTH Patient resulted labs reviewed. Pending Labs Laboratory Tests 11/07/18 11:45: Stool Occult Blood Immunoassay [Pending] Discussion & Recommendations Discharge Planning: <30 minutes discharge planning Discharge Home Medications: Active Scripts Active Prednisone 10 Mg Tab.ds.pk 10 Mg PO DAILY Take 6 tabs(60mg)daily,decrease by 1 tab(10MG)daily. Cefdinir 300 Mg Capsule 300 Mg PO BID Advair Hfa 115-21 Mcg Inhaler (Fluticasone/Salmeterol) 12 Gm Hfa.aer.ad 2 Puff IH BID@08,20 Klor-Con 10 (Potassium Chloride) 10 Meq Tablet.er 40 Meq PO DAILY@0700 Eliquis (Apixaban) 5 Mg Tablet 5 Mg PO BID Reported Gabapentin 300 Mg Capsule 300 Mg PO HS Isosorbide Mononitrate ER (Isosorbide Mononitrate) 30 Mg Tab.er.24h 30 Mg PO DAILY Clopidogrel (Clopidogrel Bisulfate) 75 Mg Tablet 75 Mg PO DAILY Pantoprazole Sodium 40 Mg Tablet.dr 40 Mg PO DAILY Aspirin EC (Aspirin) 81 Mg Tablet.dr 81 Mg PO DAILY Furosemide 40 Mg Tablet 40 Mg PO DAILY Sertraline HCl 100 Mg Tablet 100 Mg PO DAILY Allopurinol 100 Mg Tablet 100 Mg PO DAILY Instructions to patient/family Please see electronic discharge instructions given to patient. Clinical Quality Measures DVT/VTE Risk/Contraindication: Risk Factor Score Per Nursin RFS Level Per Nursing on Admit: 3=High Problem Qualifiers (1) Acute exacerbation of congestive heart failure: Heart failure type: unspecified Qualified Codes: I50.9 - Heart failure, unspecified (2) CAD (coronary artery disease): Coronary Disease-Associated Artery/Lesion type: [place] artery [place] vs. transplanted heart: [place] heart Associated angina: with stable angina Qualified Codes: I25.118 - Atherosclerotic heart disease of [place] coronary artery with other forms of angina pectoris (3) Stenosis of coronary stent: Encounter type: sequela Qualified Codes: T82.855S - Stenosis of coronary artery stent, sequela (4) Gout: Gout site: unspecified site Gout etiology: unspecified cause Chronicity: unspecified Qualified Codes: M10.9 - Gout, unspecified JUNO ZHANG DO Nov 07, 2018 13:03
--- NOTE | 2018-11-07 13:44 | Cardiology Progress Note ---
Cardiology SOAP Progress Note Subjective: No cardiac complaints. Objective: I&O/Vital Signs 11/07/18 11/07/18 11/07/18 11/07/18 03:03 04:00 07:00 08:00 Temp 97.6 98.9 Pulse 60 61 65 Resp 14 16 B/P (MAP) 147/67 (93) 137/64 (88) Pulse Ox 93 97 97 O2 Delivery Room Air Room Air Room Air 11/07/18 11/07/18 11/07/18 11/07/18 08:00 08:35 08:36 12:00 Temp 97.4 Pulse 63 Resp 20 B/P (MAP) 140/63 (88) Pulse Ox 94 95 94 O2 Delivery Room Air Room Air Room Air Room Air 11/07/18 12:38 Pulse 66 11/07/18 00:00 Intake Total 890 ml Output Total 600 ml Balance 290 ml Weight (Pounds): 189 Weight (Ounces): 6.4 Weight (Calculated Kilograms): 85.848028 Constitutional: appears stated age, AAO x 3; No apparent distress; well- developed, well-nourished Respiratory: No accessory muscle use, No respiratory distress, No chest tender, No chest expansion is symmetric; chest is bilaterally symmetric; No lungs clear to percussion; lungs clear to auscultation; No crackles, No rhonchi, No rales, No stridor, No wheezing, No pleural rub, No other Cardiovascular: regular rate-rhythm; No irregularly irregular, No extra beats, No parasternal heave is noted, No JVD, No edema, No bradycardia, No tachycardia, No point of maximal impulse, No cardiac thrills are palpable; S1 and S2; No gallop/S3, No gallop/S4, No diastolic murmur, No systolic murmur, No friction rub, No click, No other Gastrointestional: No tender, No soft, No round, No distended, No pulsatile mass, No organomegaly, No guarding, No rebound, No tenderness, No hernia, No mass, No audible bowel sounds, No abnormal bowel sounds, No abdominal bruits, No spleenomegaly, No other Extremities: No normal range of motion, No non-tender, No normal inspection, No pedal edema, No calf tenderness, No normal capillary refill, No pelvis stable, No calf tenderness, No inflammation, No pedal edema, No slow capillary refill, No swelling, No other, No abrasion, No clubbing, No cyanosis, No ecchymosis, No laceration, No no lower extremity edema bilateral, No significant edema, No tenderness, No wound Neurologic/Psychiatric: no motor/sensory deficits, alert, normal mood/affect, oriented x 3, power is 5/5 both on sides Skin: No rash, No ulcerations Results/Procedures: Labs Laboratory Tests 11/06/18 15:42: Blood Gas Puncture Site L RAD, Blood Gas Patient Temperature 98.2, Arterial Blood pH 7.47H, Arterial Blood Partial Pressure CO2 40, Arterial Blood Partial Pressure O2 71L, Arterial Blood HCO3 29H, Arterial Blood Total CO2 30.0, Art erial Blood Oxygen Saturation 96, Arterial Blood Base Excess 5.1H, Hany Test YES-POS, Blood Gas Ventilator Setting NO, Blood Gas Inspired Oxygen RA 11/07/18 04:44: White Blood Count 6.7, Red Blood Count 3.44L, Hemoglobin 10.1L, Hematocrit 32L, Mean Corpuscular Volume 92, Mean Corpuscular Hemoglobin 29, Mean Corpuscular Hemoglobin Concent 32, Red Cell Distribution Width 15.5H, Platelet Count 118L, Mean Platelet Volume 12.1H, Neutrophils (%) (Auto) 89H, Lymphocytes (%) (Auto) 8L, Monocytes (%) (Auto) 3, Eosinophils (%) (Auto) 0, Basophils (%) (Auto) 0, Neutrophils # (Auto) 6.0, Lymphocytes # (Auto) 0.5L, Monocytes # (Auto) 0.2, Eosinophils # (Auto) 0.0, Basophils # (Auto) 0.0, Sodium Level 137, Potassium Level 3.9, Chloride Level 98, Carbon Dioxide Level 25, Anion Gap 14, Blood Urea Nitrogen 30H, Creatinine 1.23, Estimat Glomerular Filtration Rate 43, BUN/Creatinine Ratio 24, Glucose Level 301H, Calcium Level 9.3, Phosphorus Level 3.2, Magnesium Level 1.9, Troponin I < 0.028 11/07/18 11:45: Stool Occult Blood Immunoassay POSITIVEH Microbiology 11/06/18 Blood Culture - Preliminary, Resulted No growth 11/05/18 Urine Culture - Final, Complete NO GROWTH A/P: Assessment/Dx: Shortness of breath, Acute diastolic congestive heart failure, CAD/CABG, Permanent pacemaker, Anemia, Hypokalemia, Chronic kidney disease stage III Plan: Shortness of breath, multifactorial. Consider COPD and diastolic heart failure. Acute diastolic congestive heart failure, echocardiogram. Elevated BNP. Lasix. CAD/CABG, continue dual antiplatelet therapy. Negative troponin. Permanent pacemaker, no acute issues. Anemia, unclear etiology. Hypokalemia, recommend repletion. Chronic kidney disease stage III Thank you for your consultation. Please call me if you have any questions. Unruly Layne MD, FACP, FACC, FSCAI, FHRS, CCDS Interventional Cardiology Cardiac Electrophysiology Vascular Medicine and Endovascular Interventions Focused Exam Lactate Level 11/05/18 21:35: Lactic Acid Level 2.03*H 11/05/18 23:30: Lactic Acid Level 1.47 Olivia LAYNE MD Nov 07, 2018 1:44 pm
[2018-11-07 14:00] VITALS: BP 140/63
--- NOTE | 2018-11-07 14:00 | NUR ---
GLENN ANDREWS demonstrates understanding of discharge instructions and accurately returns instructions upon questioning. Copy of Post-Discharge Instructions and Medication Discharge Instructions given to PT. GLENN ANDREWS is able to manage continuing needs after discharge. Patients belongings returned to PT. Skin dry and intact; no breakdown noted. Patient discharged from [facility]- on 11/07/18 at 1400. GLENN ANDREWS left floor via , accompanied by STAFF AND DAUGHTER.
== END 2018-11-07 14:00 | disposition home or self-care (01) | DRG 291 ==
LOC: EDUNIT# 21:22 → ER FS 21:23 → UNDOADMIN 23:10 → ICU 23:10 → 4TH 11-06 15:22
PROVIDERS: ADMIT Internal Medicine; ATTEND Internal Medicine
DX: I13.0 Hypertensive heart and chronic kidney disease with heart failure and stage 1 through stage 4 chronic kidney disease, or unspecified chronic kidney disease (principal); I50.31 Acute diastolic (congestive) heart failure; N18.3 Chronic kidney disease, stage 3 (moderate); J44.0 Chronic obstructive pulmonary disease with (acute) lower respiratory infection; J20.9 Acute bronchitis, unspecified; J44.1 Chronic obstructive pulmonary disease with (acute) exacerbation; R06.03 Acute respiratory distress; I25.118 Atherosclerotic heart disease of native coronary artery with other forms of angina pectoris; E78.00 Pure hypercholesterolemia, unspecified; D64.9 Anemia, unspecified; D69.6 Thrombocytopenia, unspecified; T82.855D Stenosis of coronary artery stent, subsequent encounter; H91.13 Presbycusis, bilateral; M10.9 Gout, unspecified; E87.6 Hypokalemia; G47.34 Idiopathic sleep related nonobstructive alveolar hypoventilation; Z95.1 Presence of aortocoronary bypass graft; Z95.5 Presence of coronary angioplasty implant and graft; Z95.0 Presence of cardiac pacemaker; Z99.81 Dependence on supplemental oxygen
CPT/HCPCS: 36415; 71045; 80048; 80053; 81000; 82274; 82805; 83605; 83735; 83880; 84100; 84484; 85025; 87040; 87088; 93005; 93306; 94640; 94760; 96365; 96375

== ENCOUNTER → 2019-03-25 | Outpatient (CLI) | payer MEDICARE, OTHER ==
[~2019-03-25] MED LIST: ALLO100T PO; APIX5TAB PO; ASPI-983 PO; CEFD300C3 PO; CLOP75TA28 PO; FLUT12AE4 IH; FURO40TA4 PO; GABA-488 PO; ISOS30TA3 PO; PANT40TA3 PO; POTA10TA6 PO; PRED10TA22 PO; SERT100T8 PO
--- NOTE | 2019-03-25 16:23 | Diagnostic Imaging Report ---
INDICATION: Rib pain status post fall. COMPARISON: None. FINDINGS: Three views of the right ribs were obtained. There is no fracture, dislocation, or other acute bony abnormality identified. Visualized portions of the right lung are clear. The surrounding soft tissues appear unremarkable. No radiopaque foreign bodies are seen. Advanced osteoarthritic changes of the right shoulder are noted. There is severe narrowing of the acromiohumeral joint space with high riding of the humeral head consistent with probable chronic rotator cuff tear. IMPRESSION: 1. No healing or displaced right-sided rib fractures. 2. Probable chronic rotator cuff tear of the right shoulder. Dictated by: Dictated on workstation # [id number]
== END ==
LOC: RAD 15:35
PROVIDERS: ATTEND Pediatrics
DX: R07.81 Pleurodynia (principal); Z91.81 History of falling
CPT/HCPCS: 71100

== ENCOUNTER → 2021-05-29 | Outpatient (CLI) | payer MEDICARE, OTHER ==
[~2021-05-29] MED LIST changes: +ASPI-1238 PO; -ASPI-983 PO; -ISOS30TA3 PO; +ISOS30TA82 PO; -PANT40TA3 PO; +PANT40TA52 PO; +POTA-160 PO; -POTA10TA6 PO; +SERT-414 PO; -SERT100T8 PO
--- NOTE | 2021-05-29 14:43 | Diagnostic Imaging Report ---
PROCEDURE: US Non-OB pelvis comp/trans. TECHNIQUE: Multiple real-time grayscale images were obtained of the pelvis in various projections endovaginally. Transabdominal imaging was also performed. INDICATION: Right ovarian cyst. COMPARISON: None available. FINDINGS: The uterus measures 5.4 x 3.3 x 4.9 cm. In the posterior aspect of the uterine body, there is a heterogeneous mass measuring 1.4 x 0.9 x 1.3 cm that is likely an intramural fibroid. This does not have mass effect on the endometrium. The endometrium is thickened measuring 0.8 cm in thickness, and there is some mild vascularity within the thickened endometrium. The right ovary measures 3.8 x 2.3 x 3.8 cm. Within the right ovary, there is a heterogeneous area of echogenicity that could represent a complex cyst versus mass. Due to its infiltrative appearance, this area was not discretely measured. The left ovary is normal in appearance measuring 2.1 x 1.1 x 1.9 cm. Blood flow is present within the left ovary. IMPRESSION: 1. Abnormal thickening of the endometrium could be due to endometrial neoplasm in a postmenopausal female. If not already performed, gynecology consultation is advised for further assessment. 2. Possible right ovarian mass versus hemorrhagic cyst. This would be abnormal in a postmenopausal female. Consider follow-up ultrasound in 6-12 months for reassessment versus MRI of the pelvis with and without contrast per the female pelvis protocol. Dictated by: Dictated on workstation # [id number]
== END ==
LOC: RAD 11:00
PROVIDERS: ATTEND Obstetrics & Gynecology
DX: N83.201 Unspecified ovarian cyst, right side (principal); R93.89 Abnormal findings on diagnostic imaging of other specified body structures
CPT/HCPCS: 76830; 76856

== ENCOUNTER 2021-06-11 05:33 | Outpatient (CLI) | payer MEDICARE, OTHER ==
[~2021-06-11] VITALS: Ht 154.9 cm; Wt 88.6 kg
[2021-06-11] MEDS ORDERED: CARV6.252 PO (10:12)
[2021-06-11] MEDS ORDERED: PRAV40TA2 PO (10:12)
[2021-06-11] MEDS ORDERED: ROPI0.5T4 PO (10:12)
[2021-06-11] MEDS ORDERED: ISOS30TA82 PO (10:12)
[2021-06-11] MEDS ORDERED: ASPI-808 PO (10:12)
[2021-06-11] MEDS ORDERED: GLIM2TAB4 PO (10:12)
== END 2021-06-11 10:16 | disposition home or self-care (01) ==
LOC: PREOP 05:33
PROVIDERS: ATTEND Obstetrics & Gynecology
DX: Z01.818 Encounter for other preprocedural examination (principal)

== ENCOUNTER 2021-06-18 07:55 | Day surgery (SDC) | payer MEDICARE, OTHER ==
[~2021-06-18] VITALS: Ht 154 cm; Wt 88.6 kg
[2021-06-18] VITALS (12 sets, daily range): BP systolic 100–145; BP diastolic 61–73
[~2021-06-18 07:55] MED LIST changes: +ASPI-808 PO; +CARV6.252 PO; +GLIM2TAB4 PO; +PRAV40TA2 PO; +ROPI0.5T4 PO
[2021-06-18] MEDS ORDERED: LACTATED RINGERS 1,000 ML IV PRN (08:15)
[2021-06-18 09:10] LABS: BASOPHILS % (AUTO) 1 % (0-10); EOSINOPHILS # (AUTO) 0.2 10^3/uL (0.0-0.3); EOSINOPHILS % (AUTO) 3 % (0-10); HEMATOCRIT 39 % (35-52); HEMOGLOBIN 12.6 g/dL (11.5-16.0); LYMPHOCYTES # (AUTO) 1.9 10^3/uL (1.0-4.0); LYMPHOCYTES % (AUTO) 29 % (12-44); MEAN CORPUSCULAR HEMOGLOBIN 29 pg (25-34); MEAN CORPUSCULAR HGB CONC 33 g/dL (32-36); MEAN CORPUSCULAR VOLUME 90 fL (80-99); MEAN PLATELET VOLUME 11.5 fL (9.0-12.2); MONOCYTES # (AUTO) 0.4 10^3/uL (0.0-1.0); MONOCYTES % (AUTO) 7 % (0-12); NEUTROPHILS # (AUTO) 3.8 10^3/uL (1.8-7.8); NEUTROPHILS % (AUTO) 61 % (42-75); PLATELET COUNT 124 10^3/uL (130-400); WHITE BLOOD COUNT 6.4 10^3/uL (4.3-11.0)
[2021-06-18] MEDS ORDERED: BUPIVACAINE 0.25% 30 ML (SENSORCAINE) VIAL ONE (09:40)
[2021-06-18] MEDS ORDERED: ONDANSETRON 4 MG/2 ML (SDV) Z0FRAN ONE (09:51)
[2021-06-18] MEDS ORDERED: fentaNYL INJ 100 MCG/2 ML AMP ONE (09:51)
[2021-06-18] MEDS ORDERED: LIDOCAINE PF 2% 5 ML (XYLOCAINE) VIAL ONE (09:51)
[2021-06-18] MEDS ORDERED: proPOfol 200 MG/20 ML (DIPRIVAN) VIAL IV ONE (09:51)
[2021-06-18] MEDS ORDERED: KETOROLAC 30 MG/ML VIAL IVP ONE (10:30)
[2021-06-18] MEDS ORDERED: D5 LR IV SOLUTION 1,000 ML IV SCH (10:30)
[2021-06-18] MEDS ORDERED: ONDANSETRON 4 MG/2 ML (SDV) Z0FRAN IVP PRN ×2 (10:30→11:00)
--- NOTE | 2021-06-18 10:30 | Progress Note-Pre Operative ---
Pre-Operative Progress Note H&P Reviewed The H&P was reviewed, patient examined and no changes noted. Date Seen by Provider: Jun 18, 2021 Time Seen by Provider: 09:45 Date H&P Reviewed: Jun 18, 2021 Time H&P Reviewed: 09:45 Pre-Operative Diagnosis: PMB MARISSA HALE DO Jun 18, 2021 10:30
--- NOTE | 2021-06-18 10:32 | Discharge Inst-Women's Service ---
Discharge Inst-Women's Serv Depart Medication/Instructions New, Converted or Re-Newed RX: Other (take OTC NSAIDs as needed) Activity Activity: Activity as Tolerated Driving Instructions: You May Drive (after today) NO SMOKING: NO SMOKING Nothing Inside Vagina: No Douching, No [place], No Tampons Diet Discharge Diet: No Restrictions Symptoms to Report to : Bleeding Excessive, Pain Increased, Fever Over 101 Degrees F, Vaginal Bleeding Increase, Questions/Concerns MARISSA HALE DO Jun 18, 2021 10:32
[2021-06-18] MEDS ORDERED: HYDROmorphone 2 MG/ML VIAL (DILAUDID) IV ONE (11:00)
--- NOTE | 2021-06-18 11:26 | Anesthesia-General Post-Op ---
General Patient Condition Mental Status/LOC: Same as Preop Cardiovascular: Satisfactory Nausea/Vomiting: Absent Respiratory: Satisfactory Pain: Controlled Complications: Absent Post Op Complications Complications None Follow Up Care/Instructions Patient Instructions None needed. Anesthesia/Patient Condition Patient Condition Patient is doing well, no complaints, stable vital signs, no apparent adverse anesthesia problems. No complications reported per nursing. D/C home per [facility] [place] Criteria: Yes ELAINE PAREDES CRNA Jun 18, 2021 11:26
[2021-06-18] MEDS ORDERED: KETOROLAC 15 MG/ML VIAL IVP ONE (11:30)
--- NOTE | 2021-06-18 18:02 | OPERATIVE REPORT ---
DATE OF SERVICE: PREOPERATIVE DIAGNOSES: 1. A 75-year-old female with thickened endometrium. 2. Postmenopausal bleeding. POSTOPERATIVE DIAGNOSES: 1. A 75-year-old female with thickened endometrium. 2. Postmenopausal bleeding. PROCEDURE: D and C. SURGEON: Marissa Hale DO ANESTHESIA: LMA general. ESTIMATED BLOOD LOSS: Minimal. URINE OUTPUT: 100 mL clear at the end of procedure. FLUIDS: 300 mL of lactated Ringer's solution. FINDINGS: A grossly normal appearing external female genitalia, age appropriate vaginal atrophy. A small to moderate amount of endometrial curettings with what appears to be an endometrial polyp. SPECIMEN SENT: Endometrial curettings. INDICATIONS FOR PROCEDURE: This 75-year-old female is a patient who had sought care in my office for postmenopausal bleeding. Ultrasound showed a thickened endometrium. I discussed with the patient concerns for endometrial hyperplasia malignancy. We need to perform endometrial biopsy. She was unable to tolerate in the office and was scheduled for D and C. Risks of procedure were discussed with the patient in detail including risk of anesthesia and the procedure itself. After all her questions were answered, she was agreeable to proceed. Consent was obtained. The patient was taken to the operating room. OPERATIVE REPORT IN DETAIL: Once in the operating room, anesthesia was found to be adequate. She was placed in the dorsal lithotomy position, prepped in normal sterile fashion. A timeout was performed. A weighted speculum inserted to the patient's vagina, which allows to drain the bladder using straight catheterization. I then grasped the cervix at 12 o'clock position using a single tooth tenaculum. I performed paracervical block at 3 and 9 o'clock positions on the cervix. Care was taken to aspirate for injecting 5 mL of 0.25% Marcaine injected into each site. I then gently sound the uterine cavity, depth was found to be 6 cm. I then gently dilated the cervix using Hanks dilators to allow a gentle curettage to be passed through the cervix. At that point, a medium size endometrial curette is placed through the cervix and endometrial curettings were collected by a gentle curetting the endometrial surface. All the tissue was collected and sent as endometrial curettings, after which there was no active bleeding noted from any of my dissection planes of the cervix itself. The tenaculum was removed. There was no evidence of damage from the tenaculum puncture site. All instruments were removed from the patient's vagina. The patient tolerated the procedure well and sent to recovery area in stable condition. Lap and sponge counts were correct at the end of procedure. Instrument counts correct as well. Job ID: [id number] DocumentID: [id number] Dictated Date: 06/18/2021 11:34:46 Direct Support Staff Date: 06/18/2021 18:01:01 Dictated By: MARISSA HALE DO
== END 2021-06-18 13:15 | disposition home or self-care (01) ==
LOC: SDC 07:55
PROVIDERS: ATTEND Obstetrics & Gynecology
DX: N84.0 Polyp of corpus uteri (principal); D39.11 Neoplasm of uncertain behavior of right ovary; Z87.891 Personal history of nicotine dependence
CPT/HCPCS: 36415; 82947; 85025; 86850; 86900; 86901; 87081; 94664

== ENCOUNTER → 2022-04-18 | Outpatient (CLI) | payer MEDICARE, OTHER ==
--- NOTE | 2022-04-18 12:21 | Diagnostic Imaging Report ---
PROCEDURE: Pelvic comp/transvaginal sonogram. TECHNIQUE: Complete transabdominal and transvaginal pelvic ultrasound was performed. In addition, limited pelvic Doppler was performed. INDICATION: Postmenopausal bleeding. COMPARISON: Correlation is made with prior study from 05/29/2021. FINDINGS: Uterus measures 7.0 x 4.4 x 3.3 cm. Endometrium is 4 mm in thickness, compared with 8 mm on prior exam. There is a questionable mass in the posterior uterine body measuring 1.3 x 1.0 x 1.1 cm. This produces slight indentation upon the endometrium. Right ovary measures 3.9 x 3.3 x 2.1 cm and left ovary measures 1.9 x 1.3 x 1.0 cm. The appearance of the right ovary appears similar to prior exam. There is significant asymmetry between the ovaries, right being larger and more heterogeneous. An infiltrative mass involving the right ovary again cannot be entirely excluded. There is no free fluid. IMPRESSION: 1. Probable posterior uterine body fibroid. No significant endometrial thickening is identified on today's study. 2. Continued abnormal appearance to the right ovary. Ovarian neoplasm cannot be entirely excluded. Dictated by: Dictated on workstation # [id number]
== END ==
LOC: RAD FS 09:15
PROVIDERS: ATTEND Nurse Practitioner Women's Health
DX: N95.0 Postmenopausal bleeding (principal)
CPT/HCPCS: 76830; 76856